=== PATIENT | male | born 1985 | race African-American/Black ===

== ENCOUNTER 2018-11-26 09:57 | Emergency (ER) | payer SELFPAY ==
[~2018-11-26] VITALS: Ht 177.8 cm; Wt 90.7 kg
--- NOTE | 2018-11-26 10:20 | PHYS DOC ---
Past Medical History Past Medical History: Bipolar, Schizophrenia Past Surgical History: No Surgical History Additional Information: 1 ppd Alcohol Use: Occasionally Additional Information: Pt reports he drinks alcohol whenever he can get it Drug Use: Marijuana, Methamphetamine Adult General Chief Complaint Chief Complaint: ALTERED MENTAL STATUS [facility] HPI Patient is a 33 year old male who was brought here by EMS after he was found sleeping outside on the sidewalk by the police. Patient nicely suicidal ideation, denies homicidal ideation. Patient said he did feel weak and tired. He denies any abdominal pain, no nausea vomiting, no back pain. He admitted of using methamphetamine and marijuana. EMS report that when patient stood up he was feeling shaky BUT did not pass out. aLL OTHER ros IS NEGATIVE UNLESS OTHERWISE NOTED IN hpi Review of Systems Review of Systems See above Allergies Allergies Allergies Coded Allergies Type Severity Reaction Last Updated Verified No Known Drug Allergies 11/26/18 No Physical Exam Physical Exam See above Constitutional: Well developed, well nourished, no acute distress, non-toxic appearance. Patient is very somnolent, woke up to answer questions and then went back to sleep. HENT: Normocephalic, atraumatic, bilateral external ears normal, oropharynx moist, no oral exudates, nose normal. [] Eyes: PERRLA, EOMI, conjunctiva normal, no discharge. [] Neck: Normal range of motion, no tenderness, supple, no stridor. [] Cardiovascular:Heart rate regular rhythm, no murmur [] Lungs & Thorax: Bilateral breath sounds clear to auscultation [] Abdomen: Bowel sounds normal, soft, no tenderness, no masses, no pulsatile shea s. [] Skin: Warm, dry, no erythema, no rash. [] Back: No tenderness, no CVA tenderness. [] Extremities: No tenderness, no cyanosis, no clubbing, ROM intact, no edema. NO SIGNS OF TRAUMA. Neurologic: Alert and oriented X 3, normal motor function, normal sensory function, no focal deficits noted. Appeared very sleepy but normal speech, moved all extremities. Psychologic: Affect normal, judgement normal, mood normal. [] Current Patient Data Vital Signs Vital Signs Date Time Temp Pulse Resp B/P (MAP) Pulse Ox O2 Delivery O2 Flow Rate FiO2 11/26/18 09:57 98.6 92 16 143/79 (100) 100 Room Air 98.6 Lab Values Laboratory Tests Test 11/26/18 10:59 Glucose (Fingerstick) 108 mg/dL (70-99) H EKG EKG [] Radiology/Procedures Radiology/Procedures [] Course & Med Decision Making Course & Med Decision Making Pertinent Labs and Imaging studies reviewed. (See chart for details) Patient was sleeping here. He was given food to eat here. He became more awake, alert. Denied suicidal ideation or homicidal ideation. Dragon Disclaimer Dragon Disclaimer This electronic medical record was generated, in whole or in part, using a voice recognition dictation system. Departure Departure Impression: Primary Impression: Encounter for medical screening examination Additional Impressions: Homeless single person Weakness Disposition: 01 HOME, SELF-CARE Condition: STABLE Patient Instructions: Weakness Scripts No Active Prescriptions or Reported Meds Problem Qualifiers ADELA NOE DO Nov 26, 2018 10:20
[2018-11-26 18:00] VITALS: BP 114/80
== END 2018-11-26 18:48 | disposition home or self-care (01) ==
LOC: ER 09:57
DX: R45.851 Suicidal ideations (principal); R53.1 Weakness; Z59.0 Homelessness; F31.9 Bipolar disorder, unspecified; F17.200 Nicotine dependence, unspecified, uncomplicated; F15.20 Other stimulant dependence, uncomplicated; F12.20 Cannabis dependence, uncomplicated
CPT/HCPCS: 82962; 99283